=== PATIENT | female | born 1975 | race African-American/Black ===

== ENCOUNTER 2018-03-19 11:34 | Emergency (ER) | payer MEDICAID ==
[~2018-03-19] VITALS: Ht 175.3 cm; Wt 91.0 kg
[2018-03-19] MEDS ORDERED: ONDANSETRON HCL 4MG/2ML INJ IV ONE (15:30)
[2018-03-19] MEDS ORDERED: FAMOTIDINE 20MG/2ML VIAL IV ONE (15:30)
[2018-03-19 16:50] VITALS: BP 145/96
== END 2018-03-19 16:53 | disposition home or self-care (01) ==
LOC: ER 11:34
DX: G43.A0 Cyclical vomiting, in migraine, not intractable (principal); R10.13 Epigastric pain; F17.200 Nicotine dependence, unspecified, uncomplicated
CPT/HCPCS: 81025; 96374; 96375; 99283; J2405; J3490